=== PATIENT | female | born 1940 | race Caucasian/White ===

== ENCOUNTER 2020-07-23 18:14 | Emergency (ER) | payer MEDICARE ==
[~2020-07-23 18:14] MED LIST: BENTYL10 MG PO; MACROBID100 MG PO; NORCO 5-325 TA1 EACH PO; ONDANSETRON ODT4 MG SL
[2020-07-23] MEDS ORDERED: PREDNISOLONE ACE5 ML EYERT (20:23)
[2020-07-23] MEDS ORDERED: ONDANSETRON ODT4 MG SL (20:23)
[2020-07-23] MEDS ORDERED: NORCO 5-325 TA1 EACH PO (20:23)
[2020-07-23] MEDS ORDERED: ZOVIRAX800 MG PO (20:23)
[2020-07-23] MEDS ORDERED: PREDNISONE 20MG20 MG PO (20:25)
== END 2020-07-23 20:40 | disposition home or self-care (01) ==
LOC: FER 18:14
DX: B02.30 Zoster ocular disease, unspecified (principal); R11.10 Vomiting, unspecified; R19.7 Diarrhea, unspecified; I10 Essential (primary) hypertension; J44.9 Chronic obstructive pulmonary disease, unspecified; E03.9 Hypothyroidism, unspecified; K21.9 Gastro-esophageal reflux disease without esophagitis; Z88.2 Allergy status to sulfonamides; Z88.6 Allergy status to analgesic agent; Z88.5 Allergy status to narcotic agent; Z79.899 Other long term (current) drug therapy; Z20.822 Contact with and (suspected) exposure to COVID-19
CPT/HCPCS: 99283; U0002